=== PATIENT | female | born 1945 | race Native Hawaiian/Other Pacific Islander ===

== ENCOUNTER 2020-11-08 10:31 | Emergency (ER) | payer OTHER ==
[~2020-11-08] VITALS: Ht 149.9 cm; Wt 88.5 kg
[2020-11-08 10:37] VITALS: TEMP 98.7
[2020-11-08 11:14] VITALS: BP 151/81
== END 2020-11-08 11:16 | disposition home or self-care (01) ==
LOC: ED 10:31
DX: K13.21 Leukoplakia of oral mucosa, including tongue (principal)
CPT/HCPCS: 99282